=== PATIENT | female | born 1995 | race Caucasian/White ===

== ENCOUNTER → 2017-03-11 | Outpatient (CLI) | payer OTHER | LOC: LAB 19:21 | PROVIDERS: ATTEND Nurse Practitioner Acute Care | DX: R30.0 Dysuria (principal) | CPT/HCPCS: 87086; 87088; 87186 ==

== ENCOUNTER → 2018-02-19 | Outpatient (CLI) | payer OTHER | LOC: OD 13:21 | PROVIDERS: ATTEND Nurse Practitioner Family | DX: N39.0 Urinary tract infection, site not specified (principal) | CPT/HCPCS: 87086; 87088; 87186 ==

== ENCOUNTER → 2019-08-19 | Outpatient (CLI) | payer MEDICAID ==
[2019-08-19 16:48] LABS: EPITHELIALS (WET MOUNT) 3+ EPITHELIALS SEEN; RBCS (WET MOUNT) RARE RBCS SEEN; T.VAGINALIS (WET MOUNT) NO TRICHOMONAS SEEN; WBCS (WET MOUNT) RARE WBCS SEEN; YEAST (WET MOUNT) NO YEAST SEEN
[2019-08-19 18:05] LABS: CHLAM PCR NOT DETECTED (NOT DETECT)
== END ==
LOC: LAB 16:22
PROVIDERS: ATTEND Nurse Practitioner Family
DX: N76.0 Acute vaginitis (principal); R30.0 Dysuria; R82.71 Bacteriuria
CPT/HCPCS: 87086; 87088; 87186; 87210; 87491; 87591

== ENCOUNTER 2020-08-29 09:53 | Observation (INO) | payer MEDICAID ==
[2020-08-29] MEDS ORDERED: NORMAL SALINE 500 ML IV ONE (10:08)
[2020-08-29 10:32] LABS: APPEARANCE,URINE CLEAR; BILIRUBIN,URINE NEGATIVE (NEGATIVE); COLOR,URINE YELLOW; GLUCOSE, URINE NEGATIVE (NEGATIVE); KETONES,URINE NEGATIVE (NEGATIVE); LEUKOCYTE ESTERASE,URINE NEGATIVE (NEGATIVE); NITRITE,URINE NEGATIVE (NEGATIVE); PROTEIN,URINE NEGATIVE (NEGATIVE); URINE SPECIFIC GRAVITY 1.008; UROBILINOGEN,URINE NEGATIVE mg/dL (<2.0)
--- NOTE | 2020-08-29 10:48 | ER Document Report ---
ED GI/ - General Chief Complaint: Lower Abdominal Pain Stated Complaint: ABDOMINAL PAIN, Time Seen by Provider: 08/29/20 10:11 Notes: HPI: 24-year-old female who presents today with the onset around 1:30 AM of some suprapubic abdominal discomfort. She has had some burning with urination for 2 days. She denies any vaginal discharge. Patient states she normally does not have menstrual cycles secondary to her Mirena. She states that the pain in the pelvic region is "tight". Some radiation to bilateral hips. She denies nausea, vomiting, upper abdominal pain, chest pain, shortness of breath, or fevers. No diarrhea or flank pain. ROS: See HPI All other review of systems reviewed and otherwise negative Reviewed vital signs and nursing note as charted by RN. PHYSICAL EXAM: CONSTITUTIONAL: Alert and oriented and responds appropriately to questions. Patient does appear anxious HEAD: Normocephalic; atraumatic EYES: PERRL; Conjunctivae clear, sclerae non-icteric ENT: Normal nose; no rhinorrhea; moist mucous membranes; pharynx without lesions noted NECK: Supple without meningismus; non-tender; no cervical lymphadenopathy, no masses CARD: Tachycardic and regular; no murmurs; symmetric distal pulses RESP: Normal chest excursion without splinting or tachypnea; breath sounds clear and equal bilaterally; no wheezes, no rhonchi, no rales ABD/GI: Normal bowel sounds; non-distended; soft, mild tenderness to the suprap ubic region without any rebound or guarding. No palpable masses. No distinct right lower quadrant tenderness BACK: The back appears normal and is non-tender to palpation EXT: Normal ROM in all joints; non-tender to palpation; no edema SKIN: No acute lesions noted NEURO: CN 2-12 intact; 5/5 bilateral upper and lower extremity strength with sensation intact to light touch PSYCH: The patient's mood and manner are appropriate. Grooming and personal hygiene are appropriate. TRAVEL OUTSIDE OF THE [place] IN LAST 30 DAYS: No - Related Data Allergies/Adverse Reactions: latex Allergy (Verified 08/29/20 10:21) Past Medical History - Social History Smoking Status: Never Smoker Family History: Reviewed & Not Pertinent Physical Exam - Vital signs Vitals: Temp Pulse Resp BP Pulse Ox 98.1 F 126 H 16 122/78 100 08/29/20 10:00 08/29/20 10:00 08/29/20 10:00 08/29/20 10:00 08/29/20 10:00 Course - Re-evaluation Re-evalutation: 08/29/20 10:48 Given the above history and physical in this young 24-year-old female we will obtain basic labs, urinalysis, test, perform a pelvic examination as well as a transvaginal ultrasound. I would like to evaluate for the possibility of ectopic , ovarian torsion, urinary tract infection, pelvic inflammatory disease, or other acute pelvic pathology. I do believe acute appendicitis currently to be unlikely. 08/29/20 13:45 Ultrasound as recorded. Heart rate is currently 94 when I enter the room. Pelvic examination shows no obvious external or internal lesions. No cervical motion tenderness or adnexal masses or tenderness. test is still pending. If the is negative we will proceed with a CT scan of the abdomen and pelvis for further evaluation. 08/29/20 14:[address] is pending. Heart rate is currently 97. 08/29/20 15:10 CT scan of the abdomen and pelvis as recorded. Radiologist called me directly. They are concerned about the possibility of a uterine AVM. I do anticipate admission. I will call to speak to the OBGYN - Vital Signs Vital signs: Temp Pulse Resp BP Pulse Ox 98.1 F 126 H 21 H 98/74 L 98 08/29/20 10:00 08/29/20 10:00 08/29/20 14:01 08/29/20 14:01 08/29/20 14:01 - Laboratory Results Result Diagrams: 08/29/20 10:39 08/29/20 10:39 Laboratory Results Interpreted: 08/29/20 10:39 Sodium 135.8 L Critical Laboratory Results Reviewed: No Critical Results - Radiology Results Critical Radiology Results Reviewed: No Critical Results Discharge - Discharge Clinical Impression: Free fluid in pelvis, Pelvic cramping Condition: Fair Disposition: ADMITTED INPATIENT Admitting Provider: [facility] Unit Admitted: Telemetry
[2020-08-29 10:49] LABS: ABSOLUTE LYMPHOCYTES (AUTO) 1.4 10^3/uL (0.5-4.7); ABSOLUTE MONOCYTES (AUTO) 0.6 10^3/uL (0.1-1.4); ABSOLUTE NEUT (AUTO) 5.4 10^3/uL (1.7-8.2); BASOPHILS % (AUTO) 0.5 % (0-2); EOSINOPHILS % (AUTO) 0.5 % (0-6); HEMATOCRIT 37.8 % (36.0-47.0); HEMOGLOBIN 12.8 g/dL (12.0-15.5); LYMPHOCYTES % (AUTO) 18.9 % (13-45); MEAN CORPUSCULAR HEMOGLOBIN 29.4 pg (27.0-33.4); MEAN CORPUSCULAR HGB CONC 33.8 g/dL (32.0-36.0); MEAN CORPUSCULAR VOLUME 87 fl (80-97); MONOCYTES % (AUTO) 7.9 % (3-13); PLATELET COUNT 192 10^3/uL (150-450); RED BLOOD COUNT 4.34 10^6/uL (3.72-5.28); RED CELL DISTRIBUTION WIDTH 13.1 % (11.5-14.0); SEGMENTED NEUTROPHILS % (AUTO) 72.2 % (42-78); TOTAL CELLS COUNTED % (AUTO) 100 %; WHITE BLOOD COUNT 7.4 10^3/uL (4.0-10.5)
[2020-08-29 11:08] LABS: ALBUMIN 4.5 g/dL (3.5-5.0); ALKALINE PHOSPHATASE 58 U/L (38-126); ANION GAP 8 (5-19); ASPARTATE AMINO TRANSFERASE 26 U/L (14-36); BLOOD UREA NITROGEN 14 mg/dL (7-20); CALCIUM 9.8 mg/dL (8.4-10.2); CARBON DIOXIDE 25 mmol/L (22-30); CHLORIDE 103 mmol/L (98-107); GLUCOSE 102 mg/dL (75-110); POTASSIUM 3.8 mmol/L (3.6-5.0)
--- NOTE | 2020-08-29 13:06 | RADIOLOGY REPORT (SQ) ---
EXAM DESCRIPTION: U/S NON-OB PELVIS TV W/O DOP IMAGES COMPLETED DATE/TIME: 08/29/2020 12:35 pm REASON FOR STUDY: 16; pelvic pain COMPARISON: None. TECHNIQUE: Dynamic and static grayscale images acquired of the pelvis via transvaginal approach and recorded on PACS. Additional selected color Doppler and spectral images recorded. LIMITATIONS: None. FINDINGS: UTERUS: The uterus measures 5.5 x 4.[address] There is an IUD in place and the re is fluid within the endometrial canal. ENDOMETRIAL STRIPE: As above. CERVIX: The cervix measures 1.7 cm in length. RIGHT OVARY AND DOPPLER: The right ovary measures 2.7 x 2.5 x 1.9 cm and there is intact color Dopple r flow within the ovarian stroma. There are prominent vessels in the adnexum. LEFT OVARY AND DOPPLER: The left ovary measures 3.7 x 2.1 x 2 cm and there is intact color Doppler fl ow within the ovarian stroma. There are prominent vessels in the adnexum. FREE FLUID: There is a moderate amount of complex free fluid in the adnexum and in the cul de sac. OTHER: Prominent parametrial vessels. IMPRESSION: 1. Moderate amount of complex fully fluid in the adnexum and in the cul de sac. 2. IUD in place and fluid within the endometrial canal. 3. Prominent parametrial/adnexal vessels. 4. Normal appearance of the ovaries with intact color Doppler flow. TECHNICAL DOCUMENTATION: JOB ID: [id number] 2010 [employer]- All Rights Reserved Rev Reading location - IP/workstation name: [email or web address]
[2020-08-29 14:00] LABS: T.VAGINALIS (WET MOUNT) NO TRICHOMONAS SEEN; WBCS (WET MOUNT) RARE WBCS SEEN; YEAST (WET MOUNT) NO YEAST SEEN
--- NOTE | 2020-08-29 14:51 | RADIOLOGY REPORT (SQ) ---
EXAM DESCRIPTION: CT ABD/PELVIS WITH IV ONLY IMAGES COMPLETED DATE/TIME: 08/29/2020 2:25 pm REASON FOR STUDY: 16; lower pelvic pain COMPARISON: Pelvic ultrasound from 08/29/2020. TECHNIQUE: CT scan of the abdomen and pelvis performed using helical scanning technique with dynamic intravenous contrast injection. No oral contrast. Images reviewed with lung, soft tissue, and bone windows. Reconstructed coronal and sagittal MPR images reviewed. Delayed images for evaluation of the urinary system also acquired. All images stored on PACS. All CT scanners at this facility use dose modulation, iterative reconstruction, and/or weight based d osing when appropriate to reduce radiation dose to as low as reasonably achievable (ALARA). [facility]: Dose Right [facility]: CareDose [facility]: Dose Right [facility]: Teradose 4D [facility]: DEUS CONTRAST TYPE AND DOSE: Contrast/concentration: Isovue 350.00 mmol/ml; Total Contrast Delivered: 50. 0 ml; Total Saline Delivered: 65.0 ml RENAL FUNCTION: None required. The patient is less than 50 years old. RADIATION DOSE: CT Rad equipment meets quality standard of care and radiation dose reduction techniq ues were employed. CTDIvol: 4.8 - 4.8 mGy. DLP: 497 mGy-cm. LIMITATIONS: None. FINDINGS: LOWER CHEST: No acute abnormality. LIVER: The morphology of the liver is noncirrhotic. The portal veins are patent. He was none hepati c mass . SPLEEN: No splenomegaly or splenic mass. PANCREAS: No acute gross abnormality of the pancreas. GALLBLADDER: No acute gross abnormality of the gallbladder. ADRENAL GLANDS: No mass or asymmetry. RIGHT KIDNEY AND URETER: No solid mass, hydronephrosis, nephrolithiasis, hydroureter or ureterolithia sis. LEFT KIDNEY AND URETER: No solid mass, hydronephrosis, nephrolithiasis, hydroureter or ureterolithias is. AORTA AND VESSELS: No aneurysm of the abdominal aorta. The gonadal veins are enlarged. RETROPERITONEUM: No retroperitoneal adenopathy, hemorrhage or mass. BOWEL AND PERITONEAL CAVITY: There is a free fluid in the pelvis that extends upward along the paraco lic gutter into the right perihepatic space ; the attenuation of the fluid in the pelvis measures 47 Hounsfield units. There is no bowel obstruction, bowel wall thickening or pericolonic/ perienteric i nflammation. There is no mesenteric adenopathy, free intracranial fluid or mesenteric/ omental infla mmation. APPENDIX: Normal. PELVIS: There is an IUD in place. The serpiginous/ tubular anechoic structures with color Doppler fl ow projecting within the myometrium on the correlative ultrasound are imperceptible on the CT. There is no definite adnexal mass. ABDOMINAL WALL: No abdominal mass or hernia. BONES: No fracture or osseous lesion. OTHER: No other finding. IMPRESSION: 1. Moderate amount of complex free fluid in the pelvis that extends into the right kumar hepatic space. 2. The serpiginous/ tubular anechoic structures with color Doppler flow projecting within the myometr ium on the correlative ultrasound are imperceptible on the CT. Consultation with EIGHT SECTION BLOWER is recommend ed to exclude an uterine arteriovenous malformation. 3. Other secondary findings as detailed. TECHNICAL DOCUMENTATION: JOB ID: [id number] Quality ID # [id number]: Final reports with documentation of one or more dose reduction techniques (e.g., Au tomated exposure control, adjustment of the mA and/or kV according to patient size, use of iterative reconstruction technique) 2010 [employer]- All Rights Reserved Reading location - IP/workstation name: [email or web address]
[2020-08-29] MEDS ORDERED: NEOSTIGMINE METHYLSULFATE 10 MG/10 ML VIAL ONE (14:56)
[2020-08-29] MEDS ORDERED: ROCURONIUM BROMIDE INJ 50 MG/5 ML VIAL IV ONE (14:56)
[2020-08-29] MEDS ORDERED: GLYCOPYRROLATE 1 MG/5 ML VIAL ONE (14:56)
[2020-08-29 15:24] LABS: CHLAM PCR NOT DETECTED (NOT DETECT)
--- NOTE | 2020-08-29 17:47 | PDOC H&P ---
History of Present Illness Admission Date/PCP: 08/29/20 15:36 Patient complains of: abdominal pain History of Present Illness: SHELDON YOUNG is a 24 year old female who presents today with the onset around 1:30 AM of some suprapubic abdominal discomfort. Does not radiate. SHe has IUD in place. Describes pain so bad that she cannot stand straight or lay flat. SHe denies VB and states she has no regular cycles with her IUD in place. It was placed 2.5 yrs ago. She denies any vaginal discharge. She fever, chills, denies nausea, vomiting, bowel complait ns. No chest pain, shortness of breath. She does endorse dysuria a few days ago but resolved. No flank pain Social History Smoking Status: Never Smoker Family History Family History: Reviewed & Not Pertinent Parental Family History Reviewed: Yes Children Family History Reviewed: Yes Sibling(s) Family History Reviewed.: Yes Medication/Allergy Allergies/Adverse Reactions: latex Allergy (Verified 08/29/20 10:21) Review of Systems Constitutional: ABSENT: chills, fever(s), headache(s), weight gain, weight loss Gastrointestinal: PRESENT: abdominal pain - as per HPI Integumentary: ABSENT: rash, wounds Neurological: ABSENT: abnormal gait, abnormal speech, confusion, dizziness, f ocal weakness, syncope Psychiatric: ABSENT: anxiety, depression, homidical ideation, suicidal ideation Endocrine: ABSENT: cold intolerance, heat intolerance, polydipsia, polyuria Hematologic/Lymphatic: ABSENT: easy bleeding, easy bruising Physical Exam - Physical Exam Vital Signs: Temp Pulse Resp BP Pulse Ox 98.1 F 126 H 14 111/75 100 08/29/20 10:00 08/29/20 10:00 08/29/20 17:01 08/29/20 17:01 08/29/20 17:01 Intake & Output 08/28/20 08/29/20 08/30/20 06:59 06:59 06:59 Intake Total 500 Balance 500 Weight 43.9 kg General appearance: PRESENT: no acute distress, cooperative Respiratory exam: PRESENT: clear to auscultation margo Cardiovascular exam: PRESENT: RRR, +S1, +S2 GI/Abdominal exam: PRESENT: guarding, normal bowel sounds, rebound, soft, tenderness Psychiatric exam: PRESENT: appropriate affect, normal mood. ABSENT: homicidal ideation, suicidal ideation Skin exam: PRESENT: dry, intact, warm. ABSENT: cyanosis, rash Result Laboratory Results: 08/29/20 10:39 08/29/20 10:39 08/29/20 08/29/20 08/29/20 10:10 10:39 10:39 WBC 7.4 RBC 4.34 Hgb 12.8 Hct 37.8 MCV 87 MCH 29.4 MCHC 33.8 RDW 13.1 Plt Count 192 Seg Neutrophils % 72.2 Sodium 135.8 L Potassium 3.8 Chloride 103 Carbon Dioxide 25 Anion Gap 8 BUN 14 Creatinine 0.76 Est GFR ( Amer) > 60 Glucose 102 Calcium 9.8 Total Bilirubin 1.0 AST 26 Alkaline Phosphatase 58 Total Protein 8.0 Albumin 4.5 Lipase 60.0 Urine Color YELLOW Urine Appearance CLEAR Urine pH 7.0 Ur Specific Pride 1.008 Urine Protein NEGATIVE Urine Glucose (UA) NEGATIVE Urine Ketones NEGATIVE Urine Blood NEGATIVE Urine Nitrite NEGATIVE Ur Leukocyte Esterase NEGATIVE Urine WBC (Auto) 2 Impressions: Transvaginal US 08/29/20 10:38 IMPRESSION: 1. Moderate amount of complex fully fluid in the adnexum and in the cul de sac. 2. IUD in place and fluid within the endometrial canal. 3. Prominent parametrial/adnexal vessels. 4. Normal appearance of the ovaries with intact color Doppler flow. Abdomen/Pelvis CT 08/29/20 13:40 IMPRESSION: 1. Moderate amount of complex free fluid in the pelvis that extends into the right perihepatic space. 2. The serpiginous/ tubular anechoic structures with color Doppler flow projecting within the myometrium on the correlative ultrasound are imperceptible on the CT. Consultation with PAYROLL ACCOUNTANT is recommended to exclude an uterine arteriovenous malformation. 3. Other secondary findings as detailed. Assessment & Plan - Diagnosis (1) Abdominal pain Qualifiers: Abdominal location: lower abdomen, unspecified Qualified Code(s): R10.30 - Lower abdominal pain, unspecified Is this a current diagnosis for this admission?: Yes (2) Free fluid in pelvis Is this a current diagnosis for this admission?: Yes (3) Pelvic cramping Is this a current diagnosis for this admission?: Yes - Time Critical Time spent with patient: 15-24 minutes Anticipated Discharge Disposition: Home, Self Care Anticipated Discharge Timeframe: within 24 hours - Plan Summary Plan Summary: 24 yo female with acute onset abdominal pain and findings of abnormal fluid favoring blood in the pelvis. Possible ruptured ovarian cyst possible A-V malformation of uterus per CT scan which may have ruptured. -Admit to out patient -VSS but b/p in low range. Pulse in upper 90's to 130s. -Exam with rebound and guarding of abdomen as well as pain on KITCHEN MECHANIC exam -Discussed abdominal pain and finding on imaging: Possible rupture ovarian cyst with bleeding vs other issue such as A-V malformation mentioned on CT. Options reviewed: Diagnostic laparoscopy or serial abdominal exams overnight. She is in favor of proceeding with diagnostic laparoscopy, evacuation of fluid and repair of any bleeding. Possible oophorectomy or/and salpingectomy. Risks, benefits reviewed and consent signed
[2020-08-29] MEDS ORDERED: DEXAMETHASONE SOD PHOSPHATE INJ 4 MG/1 ML VIAL ONE (18:15)
[2020-08-29] MEDS ORDERED: ONDANSETRON HCL INJ/PF 4 MG/2 ML SDV ONE (18:15)
[2020-08-29] MEDS ORDERED: FENTANYL CITRATE INJ/PF 100 MCG/2 ML AMPUL ONE (18:15)
[2020-08-29] MEDS ORDERED: KETOROLAC TROMETHAMINE 60 MG/2 ML SDV ONE (18:15)
[2020-08-29] MEDS ORDERED: MIDAZOLAM 2 MG/2 ML INJ ONE (18:15)
[2020-08-29] MEDS ORDERED: PROPOFOL INJ 200 MG/20 ML VIAL IV ONE (18:16)
[2020-08-29] MEDS ORDERED: PROMETHAZINE HCL INJ 25 MG/1 ML VIAL IV PRN (19:27)
[2020-08-29] MEDS ORDERED: ONDANSETRON HCL INJ/PF 4 MG/2 ML SDV IV PRN (19:27)
[2020-08-29] MEDS ORDERED: DIPHENHYDRAMINE HCL 50 MG/ML VIAL IV PRN (19:27)
[2020-08-29] MEDS ORDERED: FENTANYL CITRATE INJ/PF 100 MCG/2 ML AMPUL IV PRN ×3 (19:27)
[2020-08-29] MEDS ORDERED: OXYCODONE-ACETAMINOPHEN 5-325 MG TABLET PO PRN ×3 (19:27→20:26)
[2020-08-29] MEDS ORDERED: MEPERIDINE HCL/PF INJ 25 MG/1 ML DISP.SYRIN IV PRN (19:27)
[2020-08-29] MEDS ORDERED: MORPHINE SULFATE 10 MG/ML INJ IV PRN ×2 (19:27→20:28)
[2020-08-29] MEDS ORDERED: NALOXONE HCL INJ/PF 0.4 MG/1 ML SDV ONE (20:15)
[2020-08-29] MEDS ORDERED: RINGERS SOLUTION,LACTATED 1,000 ML IV PRN (20:26)
[2020-08-29] MEDS ORDERED: KETOROLAC TROMETHAMINE INJ/PF 30 MG/1 ML SDV IV PRN (20:26)
--- NOTE | 2020-08-29 20:26 | Operative Report ---
Operative Report DATE OF SURGERY: 08/29/20 PREOPERATIVE DIAGNOSIS: Abdominal pain. Moderate amount of free fluid in the p harjit POSTOPERATIVE DIAGNOSIS: Same as above with addition of ruptured right ovarian cyst and hemoperitoneum. OPERATION: Diagnostic laparoscopy, evacuation of hemoperitoneum, removal of right ovarian cyst and cautery of hemorrhagic tissue SURGEON: DEIDRA GIRALDO ANESTHESIA: GA TISSUE REMOVED OR ALTERED: Right ovarian cyst COMPLICATIONS: none ESTIMATED BLOOD LOSS: 400cc INTRAOPERATIVE FINDINGS: Normal-appearing uterus bilateral fallopian tubes and left ovary. Right ovary with 2 cm cyst, ruptured and bleeding. Appendix appears grossly normal as does the liver and gallbladder. Hemoperitoneum noted on entry with approximately 300 cc of bright red blood in the pelvis PROCEDURE: IV fluids: per anesthesia record Urinary output: 150 cc urine emptied from the bladder at the beginning of the procedure Findings: Normal-appearing uterus, bilateral fallopian tubes and lerft ovary. Right ovary with ruptured hemorrhaging cyst. ovaries. Liver, gall bladder and appendix seen and all appeared normal Position: To recovery room in stable condition Description of procedure: The patient was taken to the operating room and general anesthesia was administered and found to be adequate. She was then placed on the OR table in the dorsal lithotomy position. The Patient was prepped and draped in usual sterile fashion. Timeout was taken. A bivalve spectulm was to visualize the cervix. The anterior lip of the cervix was then grasped with a [employer] uterine manipulator which was secured in place. At this time attention was turned of the patient's abdomen and sterile gloves were donned a 1 cm infra umbilical incision was made horizontally and carried down to the level of the rectus fascia. The rectus fascia was then grasped with 2 Valerie clamps elevated and incised with Myers scissors. A digital sweep was done noting entry into the peritoneum. The fascia was tagged bilaterally with 0-vicryl suture. A #10 Landeros trocar was positioned and CO2 gas was used to i nsufflate the abdomen to a quantity sufficient for the laparoscopy. The laparoscope was inserted and a survey was done of the abdomen pictures were obtained. Findings noted as above. Suction mainframe analyst was used to remove 300cc of bright blood from the pelvis. Two additonal additional 5 mm ports were placed one in the right and one in the left lower quadrant under direct visualization. Using a grasper and the suction mainframe analyst the pelvic structures were evaluated. The right ovary was found to have a 2 cm cyst which had ruptured and was actively bleeding-a slow ooze. The right ovary was elevated and using the LigaSure the right ovarian cyst was removed. Hemostasis was obtained of the raw edges of the ovary using the LigaSure. A Surgicel was placed over the surface of the ovary. Good hemostasis was obtained. Further saline irrigation was done to clear remaining debris from the pelvis right ovarian tissue from the cyst was removed through a 5 mm port will be sent to the lab as right ovarian cystic tissue. The right ovary was inspected once more and noted to remain hemostatic. Pictures were obtained. At this point the procedure was terminated. All instrument removed from the patient's abdomen and CO2 gas was allowed to escape. The infraumbilical port was removed. The fascia was closed with 0 Vicryl suture. The skin was closed with 3-0 Monocryl in a series of interrupted sti tiches. The skin incision was then clean dried and Dermabond was applied over the skin incision. All instrument sponge and needle counts were correct x3 for the procedure the patient tolerated the procedure well. She will proceed to recovery room in stable condition
[2020-08-29] MEDS: OXYCODONE-ACETAMINOPHEN 5-325 MG TABLET PO PRN (21:19)
[2020-08-29] MEDS: IBUPROFEN 800 MG TABLET PO SCH (22:16)
[2020-08-30] MEDS ORDERED: PHENYLEPHRINE HCL INJ/PF 10 MG/1 ML SDV ONE (05:00)
[2020-08-30] MEDS: IBUPROFEN 800 MG TABLET PO SCH (05:13)
[2020-08-30 05:42] LABS: ABSOLUTE LYMPHOCYTES (AUTO) 0.5 10^3/uL (0.5-4.7); ABSOLUTE MONOCYTES (AUTO) 0.3 10^3/uL (0.1-1.4); BASOPHILS % (AUTO) 0.1 % (0-2); HEMATOCRIT 34.8 % (36.0-47.0); HEMOGLOBIN 11.7 g/dL (12.0-15.5); MEAN CORPUSCULAR HEMOGLOBIN 29.2 pg (27.0-33.4); MEAN CORPUSCULAR HGB CONC 33.6 g/dL (32.0-36.0); MEAN CORPUSCULAR VOLUME 87 fl (80-97); MONOCYTES % (AUTO) 4.1 % (3-13); PLATELET COUNT 163 10^3/uL (150-450); RED CELL DISTRIBUTION WIDTH 13.3 % (11.5-14.0); SEGMENTED NEUTROPHILS % (AUTO) 88.8 % (42-78); TOTAL CELLS COUNTED % (AUTO) 100 %; WHITE BLOOD COUNT 6.7 10^3/uL (4.0-10.5)
[2020-08-30] MEDS ORDERED: DIPHENHYDRAMINE HCL 50 MG/ML VIAL ONE (05:55)
[2020-08-30] MEDS ORDERED: ONDANSETRON HCL INJ/PF 4 MG/2 ML SDV ONE (05:55)
[2020-08-30] MEDS ORDERED: ROCURONIUM BROMIDE INJ 50 MG/5 ML VIAL IV ONE (05:55)
[2020-08-30] MEDS ORDERED: SUCCINYLCHOLINE CHLORIDE INJ 200 MG/10 ML VIAL ONE (05:55)
[2020-08-30] MEDS ORDERED: METOCLOPRAMIDE HCL INJ/PF 10 MG/2 ML SDV ONE (05:55)
[2020-08-30] MEDS ORDERED: DEXAMETHASONE SOD PHOSPHATE INJ 4 MG/1 ML VIAL ONE (05:55)
[2020-08-30] MEDS ORDERED: KETOROLAC TROMETHAMINE 60 MG/2 ML SDV ONE (05:55)
--- NOTE | 2020-08-30 07:02 | PDOC DISCHARGE SUMMARY ---
Impression - Admit/DC Date/PCP Admission Date/Primary Care Provider: 08/29/20 15:36 Discharge Date: 08/30/20 - Discharge Diagnosis (1) Abdominal pain Is this a current diagnosis for this admission?: Yes (2) Free fluid in pelvis Is this a current diagnosis for this admission?: Yes (3) Pelvic cramping Is this a current diagnosis for this admission?: Yes - Additional Information Resuscitation Status: Full Code Discharge Diet: As Tolerated Discharge Activity: Activity As Tolerated Referrals: DEIDRA GIRALDO MD [ACTIVE PROVISIONAL STAFF] - (2 wks) Prescriptions: Ibuprofen [Motrin 800 mg Tablet] 800 mg PO Q8 10 Days #30 tablet Oxycodone HCl/Acetaminophen [Percocet 5-325 mg Tablet] 1 tab PO Q4HP PRN 5 Days #20 tablet PRN Reason: Home Medications: Ibuprofen [Motrin 800 mg Tablet] 800 mg PO Q8 10 Days #30 tablet 08/30/20 Oxycodone HCl/Acetaminophen [Percocet 5-325 mg Tablet] 1 tab PO Q4HP PRN 5 Days #20 tablet 08/30/20 Additional Information: s/p diagnostic laparoscopy with evacuation of pneumoperitoneum and repair of bleeding ruptured right ovary History of Present Illiness History of Present Illness: SHELDON YOUNG is a 24 year old female who presents today with the onset around 1:30 AM of some suprapubic abdominal discomfort. Does not radiate. SHe has IUD in place. Describes pain so bad that she cannot stand straight or lay flat. SHe denies VB and states she has no regular cycles with her IUD in place. It was placed 2.5 yrs ago. She denies any vaginal discharge. She fever, chills, denies nausea, vomiting, bowel complaitns. No chest pain, shortness of breath. She does endorse dysuria a few days ago but resolved. No flank pain Physical Exam - Physical Exam Vital Signs: Temp Pulse Resp BP Pulse Ox 97.8 F 80 18 99/50 L 100 08/30/20 03:25 08/30/20 03:25 08/30/20 03:25 08/30/20 03:25 08/30/20 03:25 Intake & Output 08/29/20 08/30/20 08/31/20 06:59 06:59 06:59 Intake Total 2000 Output Total 750 Balance 1250 Weight 44.1 kg Results Laboratory Results: WBC 6.7 10^3/uL (4.0-10.5) 08/30/20 05:27 RBC 4.00 10^6/uL (3.72-5.28) 08/30/20 05:27 Hgb 11.7 g/dL (12.0-15.5) L 08/30/20 05:27 Hct 34.8 % (36.0-47.0) L 08/30/20 05:27 MCV 87 fl (80-97) 08/30/20 05:27 MCH 29.2 pg (27.0-33.4) 08/30/20 05:27 MCHC 33.6 g/dL (32.0-36.0) 08/30/20 05:27 RDW 13.3 % (11.5-14.0) 08/30/20 05:27 Plt Count 163 10^3/uL (150-450) 08/30/20 05:27 Lymph % (Auto) 7.0 % (13-45) L 08/30/20 05:27 [place] % (Auto) 4.1 % (3-13) 08/30/20 05:27 Eos % (Auto) 0.0 % (0-6) 08/30/20 05:27 Baso % (Auto) 0.1 % (0-2) 08/30/20 05:27 Absolute Neuts (auto) 6.0 10^3/uL (1.7-8.2) 08/30/20 05:27 Absolute Lymphs (auto) 0.5 10^3/uL (0.5-4.7) 08/30/20 05:27 Absolute Monos (auto) 0.3 10^3/uL (0.1-1.4) 08/30/20 05:27 Absolute Eos (auto) 0.0 10^3/uL (0.0-0.6) 08/30/20 05:27 Absolute Basos (auto) 0.0 10^3/uL (0.0-0.2) 08/30/20 05:27 Seg Neutrophils % 88.8 % (42-78) H 08/30/20 05:27 Sodium 135.8 mmol/L (137-145) L 08/29/20 10:39 Potassium 3.8 mmol/L (3.6-5.0) 08/29/20 10:39 Chloride 103 mmol/L (98-107) 08/29/20 10:39 Carbon Dioxide 25 mmol/L (22-30) 08/29/20 10:39 Anion Gap 8 (5-19) 08/29/20 10:39 BUN 14 mg/dL (7-20) 08/29/20 10:39 Creatinine 0.76 mg/dL (0.52-1.25) 08/29/20 10:39 Est GFR ( Amer) > 60 (>60) 08/29/20 10:39 Est GFR (MDRD) Non-Af > 60 (>60) 08/29/20 10:39 Glucose 102 mg/dL (75-110) 08/29/20 10:39 Calcium 9.8 mg/dL (8.4-10.2) 08/29/20 10:39 Total Bilirubin 1.0 mg/dL (0.2-1.3) 08/29/20 10:39 Direct Bilirubin 0.0 mg/dL (0.0-0.4) 08/29/20 10:39 Neonat Total Bilirubin Not Reportable 08/29/20 10:39 Neonat Direct Bilirubin Not Reportable 08/29/20 10:39 Neonat Indirect Bili Not Reportable 08/29/20 10:39 AST 26 U/L (14-36) 08/29/20 10:39 ALT 11 U/L (<35) 08/29/20 10:39 Alkaline Phosphatase 58 U/L (38-126) 08/29/20 10:39 Total Protein 8.0 g/dL (6.3-8.2) 08/29/20 10:39 Albumin 4.5 g/dL (3.5-5.0) 08/29/20 10:39 Lipase 60.0 U/L (23-300) 08/29/20 10:39 Urine Color YELLOW 08/29/20 10:10 Urine Appearance CLEAR 08/29/20 10:10 Urine pH 7.0 (5.0-9.0) 08/29/20 10:10 Ur Specific [place] 1.008 08/29/20 10:10 Urine Protein NEGATIVE mg/dL (NEGATIVE) 08/29/20 10:10 Urine Glucose (UA) NEGATIVE mg/dL (NEGATIVE) 08/29/20 10:10 Urine Ketones NEGATIVE mg/dL (NEGATIVE) 08/29/20 10:10 Urine Blood NEGATIVE (NEGATIVE) 08/29/20 10:10 Urine Nitrite NEGATIVE (NEGATIVE) 08/29/20 10:10 Urine Bilirubin NEGATIVE (NEGATIVE) 08/29/20 10:10 Urine Urobilinogen NEGATIVE mg/dL (<2.0) 08/29/20 10:10 Ur Leukocyte Esterase NEGATIVE (NEGATIVE) 08/29/20 10:10 Urine WBC (Auto) 2 /HPF 08/29/20 10:10 Urine Bacteria (Auto) TRACE /HPF 08/29/20 10:10 Squamous Epi Cells Auto 6 /HPF 08/29/20 10:10 Urine Mucus (Auto) RARE /LPF 08/29/20 10:10 Urine Ascorbic Acid NEGATIVE (NEGATIVE) 08/29/20 10:10 Urine HCG, Qual NEGATIVE (NEGATIVE) 08/29/20 10:10 Trichomonas (Wet Prep) NO TRICHOMONAS SEEN 08/29/20 13:43 Vaginal WBC RARE WBCS SEEN 08/29/20 13:43 Vaginal Yeast NO YEAST SEEN 08/29/20 13:43 Chlamydia DNA (PCR) NOT DETECTED (NOT DETECT) 08/29/20 13:43 Influenza A (RT-PCR) NEGATIVE (NEGATIVE) 08/29/20 17:06 Influenza B (RT-PCR) NEGATIVE (NEGATIVE) 08/29/20 17:06 N.gonorrhoeae DNA (PCR) NOT DETECTED (NOT DETECT) 08/29/20 13:43 RSV (RT-PCR) NEGATIVE (NEGATIVE) 08/29/20 17:06 SARS-CoV-2 Rap RNA(RT-PCR) NEGATIVE (NEGATIVE) 08/29/20 17:06 Impressions: Transvaginal US 08/29/20 10:38 IMPRESSION: 1. Moderate amount of complex fully fluid in the adnexum and in the cul de sac. 2. IUD in place and fluid within the endometrial canal. 3. Prominent parametrial/adnexal vessels. 4. Normal appearance of the ovaries with intact color Doppler flow. Abdomen/Pelvis CT 08/29/20 13:40 IMPRESSION: 1. Moderate amount of complex free fluid in the pelvis that extends into the right perihepatic space. 2. The serpiginous/ tubular anechoic structures with color Doppler flow projecting within the myometrium on the correlative ultrasound are imperceptible on the CT. Consultation with [employer] is recommended to exclude an uterine arteriovenous malformation. 3. Other secondary findings as detailed. Stroke Is this a Stroke Patient?: No Acute Heart Failure Is this a Heart Failure Patient?: No
[2020-08-30] MEDS ORDERED: INFLUENZA QUAD (6MOS+) 2020-21 VAC 0.5 ML SYR IM ONE (08:00)
[2020-08-30 08:02] VITALS: BP 112/66
[2020-08-30] MEDS: OXYCODONE-ACETAMINOPHEN 5-325 MG TABLET PO PRN (08:03)
== END 2020-08-30 09:30 | disposition home or self-care (01) ==
LOC: ER 09:53 → EH 15:36 → INTOOBSV 15:36 → 2N 20:53
PROVIDERS: ADMIT Obstetrics & Gynecology; ATTEND Obstetrics & Gynecology
DX: N83.291 Other ovarian cyst, right side (principal); K66.1 Hemoperitoneum; R10.30 Lower abdominal pain, unspecified; R18.8 Other ascites; Z20.828 Contact with and (suspected) exposure to other viral communicable diseases; Z97.5 Presence of (intrauterine) contraceptive device; Z23 Encounter for immunization
CPT/HCPCS: 99285; 36415 ×2; 87210; 83690; 85025 ×2; 0241U ×4; 81025; 80053; 81001; 87491; 87591; 76830; 74177; 90686; 99140; 00790; 58662; G0378 ×3; G0008; J2250; J3490 ×4; J1100 ×2; J1200; J1885 ×2; J3010; J2765; J2710; J2370; J0330; J2405 ×2; J7040; J2704; C9803; 790; 90471; J2310